=== PATIENT | female | born 1960 | race Caucasian/White ===

== ENCOUNTER 2021-12-10 10:45 | Outpatient (CLI) | payer OTHER | END 2021-12-10 10:46 | disposition home or self-care (01) | LOC: CSHMRI 10:45 | PROVIDERS: ATTEND Internal Medicine Hematology & Oncology | DX: C50.412 Malignant neoplasm of upper-outer quadrant of left female breast (principal); Z15.01 Genetic susceptibility to malignant neoplasm of breast; Z80.0 Family history of malignant neoplasm of digestive organs; Z15.89 Genetic susceptibility to other disease; K86.2 Cyst of pancreas | CPT/HCPCS: 74183; 82565 ==

== ENCOUNTER 2023-01-07 09:45 | Outpatient (CLI) | payer OTHER ==
[2023-01-07] MEDS ORDERED: Magnevist 469MG/ML 20 ML VIAL ONE (10:58)
== END 2023-01-07 09:46 | disposition home or self-care (01) ==
LOC: CSHMRI 09:45
PROVIDERS: ATTEND Internal Medicine Hematology & Oncology
DX: C50.412 Malignant neoplasm of upper-outer quadrant of left female breast (principal); Z15.01 Genetic susceptibility to malignant neoplasm of breast; Z80.0 Family history of malignant neoplasm of digestive organs; Z15.89 Genetic susceptibility to other disease; K86.2 Cyst of pancreas; N28.9 Disorder of kidney and ureter, unspecified
CPT/HCPCS: 74183; 82565

== ENCOUNTER 2024-04-02 14:29 | Outpatient (CLI) | payer OTHER | END 2024-04-02 14:30 | disposition home or self-care (01) | LOC: CSHMAMMO 14:29 | PROVIDERS: ATTEND Family Medicine | DX: Z13.820 Encounter for screening for osteoporosis (principal); Z78.0 Asymptomatic menopausal state | CPT/HCPCS: 77080 ==